=== PATIENT | female | born 1970 | race Caucasian/White ===

== ENCOUNTER → 2023-01-13 07:51 | Outpatient (BNVA) | payer MEDICAID, SELFPAY | PROVIDERS: Family Provider Family Medicine; Visit Provider Podiatrist Foot & Ankle Surgery | DX: M72.2 Plantar fascial fibromatosis (principal); M24.571 Contracture, right ankle; M76.821 Posterior tibial tendinitis, right leg | CPT/HCPCS: 73630 ==